=== PATIENT | male | born 1985 | race African-American/Black ===

== ENCOUNTER 2019-02-24 23:28 | Emergency (ER) | payer SELFPAY ==
[~2019-02-24] VITALS: Ht 167.6 cm; Wt 65.0 kg
[2019-02-24 23:36] VITALS: BP 99/61
== END 2019-02-28 08:58 | disposition left against medical advice (07) ==
LOC: ER 23:28
DX: Z53.21 Procedure and treatment not carried out due to patient leaving prior to being seen by health care provider (principal)